=== PATIENT | female | born 1970 | race Caucasian/White ===

== ENCOUNTER → 2019-02-17 19:03 | Outpatient (CLI) | payer OTHER, SELFPAY ==
--- NOTE | 2019-02-17 | DI.MRI.S_ITS ---
PROCEDURE: MR SHOULDER LT WO CON INDICATIONS: LEFT SHOULDER PAIN TECHNIQUE: Noncontrast oblique coronal T2 fast spin echo with fat saturation, oblique sagittal T1 spin echo and T2 fast spin echo with fat saturation, axial T1 spin echo and T2 fast spin echo with fat saturation through the shoulder. COMPARISON: None. FINDINGS: Image quality: Excellent. Rotator cuff: The tendinosis and moderate to high-grade bursal surface partial-thickness tear involving anterior to mid fibers of the distal supraspinatus at their insertion on humeral head extending to the musculotendinous junction. Tendinosis involving posterior fibers of the distal supraspinatus and infraspinatus is seen. Distal subscapularis tendinosis is noted. Sagittal images demonstrate mild supraspinatus muscle atrophy. Bones and bursae: No bone marrow contusions or fractures. Moderate acromioclavicular joint osteoarthritic changes are seen. The acromion demonstrates conventional anatomy, without an os acromiale. No pathologic subacromial-subdeltoid or subcoracoid bursal fluid is present. Capsule and soft tissues: In the absence of intra-articular contrast, the labrum and glenohumeral ligaments appear intact. The long head of the biceps tendon demonstrates normal location and morphology. The rotator interval appears normal, without fibrosis. The coracohumeral ligament is normal in thickness. IMPRESSION: 1. Tendinosis and moderate grade bursal surface partial thickness tear involving distal supraspinatus at its insertion the humeral head extending to musculotendinous junction. Distal infraspinatus and subscapularis tendinosis. Mild supraspinatus muscle atrophy. 2. Moderate acromioclavicular joint osteoarthritis. No fracture or dislocation. 3. No definite focal labral tear. Dictated by: Walter Pedersen M.D. on 02/18/2019 at 11:00 Approved by: Walter Pedersen M.D. on 02/18/2019 at 11:03
--- NOTE | 2019-02-17 19:09 | DI.MRI.S_ITS ---
PROCEDURE: MR LUMBAR SPINE WO CON INDICATIONS: RADICULOPATHY,LUMBOSACRAL REGION TECHNIQUE: Noncontrast sagittal T1 spin echo and T2 fast echo, sagittal STIR, axial T1 and T2 fast spin echo through the lumbar spine. In cases with scoliosis, additional coronal T2 fast spin echo may be performed. COMPARISON: [facility], MR, L-SPINE WITHOUT CONTRAST, 11/23/2015, 12:55. FINDINGS: Image quality: Excellent. Alignment and Curvature: There is normal bony alignment. Bone Marrow: Marrow is of normal overall signal. No acute vertebral body compression fractures. Spinal Cord: Conus medullaris terminates at the L1 level. Visualized cord demonstrates normal signal and size. Paraspinous Soft Tissues: No paravertebral masses. T12-L1: No canal stenosis or foraminal stenosis. Facet joints are unremarkable. L1-L2: Unchanged. Central canal is patent. Minimal left posterior lateral disc bulge with minimal left foraminal narrowing. L2-L3: Unchanged. No canal stenosis or foraminal stenosis. L3-L4: Minimal disc bulge. No canal stenosis or foraminal stenosis. Mild facet joint hypertrophy. L4-L5: Mild increase in disc bulge, still mild. Right foraminal annulus tear plus foraminal disc bulge. Mild right foraminal narrowing. L5-S1: Posterior annulus tear. Development of right foraminal disc bulge. Mild right foraminal narrowing and minimal left foraminal narrowing. IMPRESSION: 1. There is no central canal stenosis. 2. At L4-L5, there is right foraminal annulus tear. There is mild interval increase in disc bulge. There is mild right foraminal narrowing. 3. L5-S1, there is posterior annulus tear. A right foraminal disc bulge has developed. There is mild right foraminal narrowing. Dictated by: Delfino Kang M.D. on 02/17/2019 at 20:26 Approved by: Delfino Kang M.D. on 02/17/2019 at 20:35
== END ==
PROVIDERS: Family Provider Physician Assistant; PCP Physician Assistant; Visit Provider Family Medicine
DX: M54.17 Radiculopathy, lumbosacral region (principal); M25.512 Pain in left shoulder
CPT/HCPCS: 72148; 73221

== ENCOUNTER → 2019-07-08 09:52 | Outpatient (CLI) | payer OTHER, SELFPAY ==
--- NOTE | 2019-07-08 09:56 | DI.RAD.S_ITS ---
PROCEDURE: XR CLAVICLE LT INDICATIONS: direct blow to shoulder from fall, r/o fx TECHNIQUE: 2 views of the clavicle were acquired. COMPARISON: [facility], CR, XR SHOULDER LT MIN 2V, 07/08/2019, 10:01. FINDINGS: Bones: No fractures or dislocations. No suspicious bony lesions. Soft tissues: No suspicious soft tissue calcifications. IMPRESSION: No acute left clavicle fractures. Dictated by: Niles Yung M.D. on 07/08/2019 at 9:36 Approved by: Niles Yung M.D. on 07/08/2019 at 9:37
--- NOTE | 2019-07-08 09:56 | DI.RAD.S_ITS ---
PROCEDURE: XR SHOULDER LT MIN 2V INDICATIONS: direct blow to shoulder from fall, r/o fx TECHNIQUE: 3 views of the shoulder were acquired. COMPARISON: [facility], KELLIE, XR CLAVICLE LT, 07/08/2019, 10:01. FINDINGS: Bones: No fractures or dislocations. No suspicious bony lesions. Visualized ribs appear intact. Soft tissues: No suspicious soft tissue calcifications. IMPRESSION: No acute osseous abnormality of the left shoulder. Dictated by: Niles Yung M.D. on 07/08/2019 at 9:35 Approved by: Niles Yung M.D. on 07/08/2019 at 9:36
== END ==
PROVIDERS: PCP Family Medicine; Visit Provider Physician Assistant
DX: S40.012A Contusion of left shoulder, initial encounter (principal); W19.XXXA Unspecified fall, initial encounter
CPT/HCPCS: 73000; 73030

== ENCOUNTER → 2019-07-23 17:32 | Outpatient (CLI) | payer OTHER, SELFPAY ==
--- NOTE | 2019-07-23 | DI.MRI.S_ITS ---
PROCEDURE: MR CERVICAL SPINE WO CON INDICATIONS: Radiculopathy, cervical region TECHNIQUE: Noncontrast sagittal T1 spin echo and T2 fast spin echo, sagittal STIR, foraminal oblique sagittal T2 fast spin echo, and axial gradient echo or T2 fast spin echo through the cervical spine. COMPARISON: None. FINDINGS: Image quality: Excellent. Alignment and Curvature: There is mild grade 1 retrolisthesis of C5 on C6. Bone Marrow: Marrow demonstrates normal overall signal. Minimal reactive signal within the endplates adjacent to the C4-C5 and C5-C6 intervertebral discs. Spinal Cord: Visualized spinal cord has normal size and signal. No cerebellar tonsillar herniation. Paraspinous Soft Tissues: No paravertebral masses. Prevertebral soft tissues are normal in thickness. C2-C3: Mild disc desiccation. No significant canal, nor foraminal stenosis. C3-C4: Mild disc desiccation. Mild facet hypertrophy bilaterally. No significant canal, nor foraminal stenosis. C4-C5: Mild disc desiccation and minimal diffuse disc bulge. Mild facet and uncovertebral hypertrophy bilaterally. No significant canal stenosis. Mild bilateral foraminal stenosis. C5-C6: Mild disc desiccation. Minimal diffuse disc bulge with superimposed small right paracentral protrusion. Mild facet and uncovertebral hypertrophy bilaterally. Mild canal stenosis. Mild bilateral foraminal stenosis. C6-C7: Mild disc desiccation. Mild diffuse disc bulge. Mild facet and uncovertebral hypertrophy bilaterally. Minimal canal stenosis. Mild bilateral foraminal stenosis. C7-T1: Normal appearance. IMPRESSION: Multilevel degenerative disc and facet disease, as well as uncovertebral hypertrophy, causing mild canal and foraminal stenoses. No neural impingement. Dictated by: Monique Gale M.D. on 07/24/2019 at 8:44 Approved by: Monique Gale M.D. on 07/24/2019 at 8:53
== END ==
PROVIDERS: Visit Provider Orthopaedic Surgery
DX: M50.122 Cervical disc disorder at C5-C6 level with radiculopathy (principal); M48.02 Spinal stenosis, cervical region
CPT/HCPCS: 72141

== ENCOUNTER → 2019-10-31 11:05 | Outpatient (CLI) | payer OTHER, SELFPAY ==
--- NOTE | 2019-10-31 | DI.MRI.S_ITS ---
PROCEDURE: MR LUMBAR SPINE WO CON INDICATIONS: Radiculopathy, lumbar region TECHNIQUE: Noncontrast sagittal T1 spin echo and T2 fast echo, sagittal STIR, axial T1 and T2 fast spin echo through the lumbar spine. In cases with scoliosis, additional coronal T2 fast spin echo may be performed. COMPARISON: [facility], MR, MR LUMBAR SPINE WO CON, 02/17/2019, 19:34. FINDINGS: Image quality: Excellent. Alignment and Curvature: There is normal bony alignment. Bone Marrow: Marrow is of normal overall signal. No acute vertebral body compression fractures. Spinal Cord: Conus medullaris terminates at the L1 level. Visualized cord demonstrates normal signal and size. Paraspinous Soft Tissues: No paravertebral masses. T12-L1: No canal stenosis or foraminal stenosis. L1-L2: Unchanged. Mild disc bulge, eccentric to the left. No canal stenosis. Mild left foraminal stenosis. L2-L3: Unchanged. No canal stenosis or foraminal stenosis. L3-L4: Unchanged. Minimal disc bulge. Minimal facet hypertrophy. No canal stenosis or foraminal stenosis. L4-L5: Mild disc bulge. Mild facet and ligament hypertrophy. Right foraminal annulus tear with previous right foraminal disc bulge, and now more of a disc protrusion with mild impingement on the exiting right L4 nerve root. Left foramen is patent. L5-S1: The unchanged. Posterior annulus tear this disc bulge. Right foraminal disc bulge with mild right foraminal narrowing. No significant left foraminal narrowing. IMPRESSION: 1. Interval progression at L4-L5. Again noted is a right foraminal annulus tear. There is a right foraminal disc protrusion with mild impingement on the exiting right L4 nerve root. Question: Does this patient have a right L4 radiculopathy? 2. At L5-S1, in posterior annulus tear and a right foraminal disc bulge are again noted. 3. No central canal stenosis. Dictated by: Delfino Kang M.D. on 10/31/2019 at 12:44 Approved by: Delfino Kang M.D. on 10/31/2019 at 12:56
== END ==
PROVIDERS: PCP Family Medicine; Referring Provider Family Medicine; Visit Provider Physical Medicine & Rehabilitation
DX: M51.16 Intervertebral disc disorders with radiculopathy, lumbar region (principal); M51.17 Intervertebral disc disorders with radiculopathy, lumbosacral region
CPT/HCPCS: 72148

== ENCOUNTER → 2020-01-31 13:27 | Outpatient (CLI) | payer OTHER, SELFPAY ==
[2020-02-01 16:50] LABS: COVID19 Sendout Not Detected (Not Detect)
== END ==
PROVIDERS: PCP Family Medicine; Visit Provider Physician Assistant
DX: Z11.59 Encounter for screening for other viral diseases (principal)
CPT/HCPCS: 87635

== ENCOUNTER 2020-02-03 11:39 | Day surgery (SDC) | payer OTHER, SELFPAY ==
[2020-01-30 08:43] VITALS: BMI 18.9
[2020-02-03] VITALS (8 sets, daily range): BP systolic 85–112; BP diastolic 49–66; PULSE 64–77; RESP 12–18; TEMP 36.1–37.1; O2SAT 93–99; BMI 18.9; BMI 23.2
[2020-02-03] MEDS: LACTATED RINGERS 1,000 ML 42 ML IV (12:00)
--- NOTE | 2020-02-03 13:34 | P.OP_ITS ---
Operative Date/Time/Diagnoses Date of procedure: 02/03/20 Time of procedure: 13:55 Pre-op diagnosis: Left shoulder subacromial impingement and significant AC osteoarthritis Post-op diagnosis: same Procedure & Clinicians Procedure: Left shoulder arthroscopic subacromial decompression, left shoulder AC resection arthroscopic Same procedure as scheduled: Yes Indications: This is a 49-year-old female who has severe ongoing left shoulder pain which significantly interferes with her activities and lifestyle. She has been worked up with an MRI scan and has done extensive physical therapy and has failed extensive conservative treatment including cortisone injections. She is brought to the operating room for a left shoulder arthroscopic subacromial decompression and distal clavicle resection. Surgeon: Kika Recee [employer] Supervisor: Manuel Perales Anesthesia Type: General and Peripheral nerve block Operative Notes Findings: Significant AC osteoarthritis, good quality resection, subacromial adhesions, partial thickness rotator cuff tear Closure Type: primary Specimen(s): none sent Estimated Blood Loss (mL): 100 Blood products transfused: none Procedure in detail: She was brought to the operating room. A time-out was performed. Antibiotics were given. She underwent the induction of a general anesthesia. She was carefully positioned in a lateral position with padding the down shoulder and on a beanbag. The left shoulder was prepped and draped in a standard sterile fashion. It was hip held with the well arm sanchez. Posterior portal was established. The scope was inserted into the glenohumeral joint. Arthroscopic evaluation of the glenohumeral joint showed: Normal humeral head and glenoid, normal appearing biceps and labrum, slight fraying of the rotator cuff no full-thickness tear, subacromial space [id number] adhesions in the subacromial space, subacromial spur no full-thickness rotator cuff tear on the bursal side, mild to moderate spur off of the distal clavicle with some AC joint instability. Attention was then directed to the subacromial space. She had a partial- thickness rotator cuff tear but did not have a full-thickness rotator cuff tear. A lateral portal was established. Shaver was inserted into the subacromial space. There are some moderate subacromial adhesions. They were meticulously resected with the shaver. Hemostasis was achieved with underwater cautery. There was small subacromial spur this was meticulously resected with a mechanical shaver and a bur. It was carefully checked evaluating the anterior aspect of the acromion. There was also some instability in the AC joint and a moderate spur off of the distal into the clavicle. The distal end of the clavicle was meticulously defined. An anterior portal was then established after resecting the inferior spur of the distal clavicle. A bur was then inserted into the anterior aspect of the shoulder and the distal 6 mm of clavicle was meticulously resected. Carefully checked to make sure that it had adequately been resected both anteriorly and posteriorly completely decompressing the AC joint. Final hemostasis was achieved. The wound was meticulously irrigated with normal saline portals were closed with interrupted Monocryl and Marcaine was injected. The wound was dressed sterilely. Patient was transferred recovery room in satisfactory condition. Complications none. Complications: none Post-operative Condition: stable Disposition: same day surgery Plan for aftercare: Sling for comfort for 24-48 hours okay to begin range of motion no strengthening until 4-6 weeks postoperatively.
--- NOTE | 2020-02-03 13:34 | PM.PREOP ---
Pre-operative Note COVID-19 COVID-19 status: Negative Interval Note History & Physical reviewed/Exam performed by Physician: Yes Changes to H&P: No
--- NOTE | 2020-02-03 13:56 | SUR.PREOP ---
Dr Coy at bedside to perform left shoulder intrascalene block. Pt placed on 2L NC with O2 sats 98%. Continuous monitoring initiated. VS as noted. Fentanyl and versed given by Dr Coy. Time out performed by Dr Coy. Initial injection time = 1356. Final injection time = 1359. Pt denies pain at this time.Pt tolerated procedure well.
[2020-02-03] MEDS: CLINDAMYCIN 900 MG/50 ML PIGGYBACK 50 MG IV (14:10)
--- NOTE | 2020-02-03 14:44 | SUR.OPER ---
Lateral on padded OR bed with wren bag, head on pillow, gel axillary roll in place, bottom leg bent with gel pad under knee to foot, upper leg straight and supported with pillows. Upper arm supported by pillows and secured over bottom arm to padded arm board. Safety belt at hip, tape over blanket lower legs.
[2020-02-03] MEDS: BUPIVACAINE 0.5% W/ EPI (PF) 30 ML VIAL INJ (14:59)
[2020-02-03] MEDS: SODIUM CHLORIDE IRRIG SOLUTION 3,000 ML, EPINEPHrine 1 MG IRR (15:00)
[2020-02-03] MEDS: ONDANSETRON 4 MG/2 ML INJ IV (16:04)
--- NOTE | 2020-02-03 16:55 | SUR.PHASEII ---
Pt up and ambulating gait steady, up to br and voiding without problems, taking po fluids well, denies nausea or pain. Unable to move left arm due to block but good capillary refill to fingernails. All dc instructions given to pt, now dressed and waiting for ride and she verbalizes understanding.
== END 2020-02-03 17:15 | disposition home or self-care (01) ==
PROVIDERS: PCP Family Medicine; Referring Provider Orthopaedic Surgery; Visit Provider Orthopaedic Surgery
PROC: (CPT 29805; principal; 2020-02-03 13:45)
DX: M25.812 Other specified joint disorders, left shoulder (principal); M19.012 Primary osteoarthritis, left shoulder; M75.51 Bursitis of right shoulder; D64.9 Anemia, unspecified; F41.9 Anxiety disorder, unspecified; F32.9 Major depressive disorder, single episode, unspecified
CPT/HCPCS: 29824; 29826; 64450; J0171; J2250; J2405; J3010

== ENCOUNTER → 2020-10-26 18:44 | Outpatient (CLI) | payer OTHER, SELFPAY ==
--- NOTE | 2020-10-26 18:45 | DI.MRI.S_ITS ---
PROCEDURE: MR CERVICAL SPINE WO CON INDICATIONS: CERVICALGIA TECHNIQUE: Noncontrast sagittal T1 spin echo and T2 fast spin echo, sagittal STIR, foraminal oblique sagittal T2 fast spin echo, and axial gradient echo or T2 fast spin echo through the cervical spine. COMPARISON: [facility], MR, MR CERVICAL SPINE WO CON, 07/23/2019, 18:05. [facility], CR, XR CERVICAL SPINE 2 OR 3 VIEWS, 09/29/2020, 16:51. FINDINGS: Image quality: Excellent. Alignment and Curvature: There is normal bony alignment. Bone Marrow: Marrow demonstrates normal overall signal. Spinal Cord: Visualized spinal cord has normal size and signal. No cerebellar tonsillar herniation. Paraspinous Soft Tissues: No paravertebral masses. Prevertebral soft tissues are normal in thickness. C2-C3: Normal appearance. C3-C4: Normal appearance. C4-C5: Slight loss disc signal. Minimal, diffuse disc bulge. No central stenosis. No neural foraminal narrowing. No neural compression. C5-C6: Slight loss of disc signal. Mild, diffuse disc bulge. Small right central disc protrusion. Mild narrowing of the central canal. No neural foraminal narrowing. No neural compression. C6-C7: Slight loss of disc signal. Minimal, diffuse disc bulge. No central stenosis. No neural foraminal narrowing. No neural compression. C7-T1: Normal appearance. IMPRESSION: 1. Mild multilevel degenerative disease. 2. Mild C5-C6 central canal narrowing. 3. No neural foraminal narrowing. 4. No neural compression. Dictated by: Carri Echavarria MD, PhD on 10/27/2020 at 6:52 Approved by: Carri Echavarria MD, PhD on 10/27/2020 at 12:36
== END ==
PROVIDERS: PCP Family Medicine; Referring Provider Physical Medicine & Rehabilitation; Visit Provider Physical Medicine & Rehabilitation
DX: M50.322 Other cervical disc degeneration at C5-C6 level (principal); M48.02 Spinal stenosis, cervical region
CPT/HCPCS: 72141

== ENCOUNTER 2021-02-21 11:30 | Outpatient (RCR) | payer OTHER, SELFPAY ==
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
--- NOTE | 2021-02-02 17:08 | ST.OPPOC ---
Physical, Occupational & Speech Therapy At [facility] Visit Care Team Role Provider Type Brice Rosario DO Family Provider Non-Staff Primary Care Provider Address: [address] [place], [address] Garry Neely MD Attending Provider Physician Referring Provider Address: [address] [place] [address], [place], [address] Speech Pathology Plan of Care Plan of Care Dates 01/31/21-06/02/21 Findings The SLUMs is typically used as a screening tool for cognitive functioning. Based on the results above, further testing using standardize assessment is warranted. Additionally, more information is needed. More records/information from other specialists on her care team will be requested. Short Term Goals Pt will complete a standardized cognitive function assessment. Electronically Signed by: RAYMOND Chauhan 02/02/21 [id number] Please Sign and Return: I have reviewed this Plan of Care and certify that the skilled therapy services above are required to meet the patient?s needs. Physician Signature Date Printed Name and Credentials Clinical Instructor Signature Printed Name and Credentials
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
== END 2021-04-12 11:01 ==
LOC: SP 11:30
PROVIDERS: Family Provider Family Medicine; PCP Family Medicine; Referring Provider Physical Medicine & Rehabilitation; Visit Provider Physical Medicine & Rehabilitation
DX: F07.81 Postconcussional syndrome (principal)
CPT/HCPCS: 92507; 92523

== ENCOUNTER → 2021-06-27 11:22 | Outpatient (CLI) | payer OTHER, SELFPAY ==
[2021-06-27 15:57] LABS: COVID19 -Nasal RAPID Negative (Negative)
== END ==
PROVIDERS: Family Provider Family Medicine; PCP Family Medicine; Visit Provider Physician Assistant
DX: Z01.812 Encounter for preprocedural laboratory examination (principal); Z20.822 Contact with and (suspected) exposure to COVID-19
CPT/HCPCS: 87635

== ENCOUNTER 2021-06-28 12:32 | Inpatient (IN) | payer OTHER, SELFPAY ==
[2021-06-21 08:47] VITALS: BMI 23.9
[2021-06-28] VITALS (7 sets, daily range): BP systolic 115–160; BP diastolic 71–92; PULSE 58–103; RESP 12–18; TEMP 36.2–37.1; O2SAT 88–99; BMI 21.9
--- NOTE | 2021-06-28 | DI.RAD.S_ITS ---
PROCEDURE: XR CHEST 1V INDICATIONS: CHEST TUBE FOR PNEUMOTHORAX TECHNIQUE: One view of the chest was acquired. COMPARISON: [facility], , XR CHEST 1V, 06/28/2021, 16:05. FINDINGS: Surgical changes and devices: Right-sided chest tube is been placed. Lungs and pleura: Lungs are clear. No pleural effusions. Trace apical right-sided pneumothorax. Mediastinum: Mediastinal contours appear normal. Heart size is normal. Bones and chest wall: No suspicious bony lesions. Overlying soft tissues appear unremarkable. IMPRESSION: Status post placement of right-sided chest tube with near resolution of right-sided pneumothorax. Trace persistent apical right-sided pneumothorax noted. Dictated by: Carri Echavarria MD, PhD on 06/28/2021 at 17:05 Approved by: Carri Echavarria MD, PhD on 06/28/2021 at 17:07
[2021-06-28] MEDS: LACTATED RINGERS 1,000 ML 42 ML IV ×2 (13:21→15:38)
--- NOTE | 2021-06-28 13:37 | PM.PREOP ---
Pre-operative Note COVID-19 COVID-19 status: Negative Interval Note History & Physical reviewed/Exam performed by Physician: Yes Changes to H&P: No
--- NOTE | 2021-06-28 13:38 | PM.OP.1 ---
Operative Date/Time/Diagnoses Date of procedure: 06/28/21 Time of procedure: 14:00 Pre-op diagnosis: Right shoulder impingement, distal clavicle osteoarthritis Post-op diagnosis: same Procedure & Clinicians Procedure: Right shoulder arthroscopic subacromial decompression, mini open distal clavicle excision Same procedure as scheduled: Yes Indications: This is a 51-year-old female with chronic right shoulder pain. She has a previous history of a right shoulder arthroscopic surgery done elsewhere. She notes severe right shoulder pain and did have radiographic evidence of moderate to severe right shoulder AC OA, she also has symptoms suggestive of impingement. She has some component of chronic neck pain with pain radiating into bilateral shoulders and some component of a chronic pain problem. Surgeon: Kika Reece Straightener And Aligner: Manuel Perales Anesthesia Type: General and Peripheral nerve block Operative Notes Findings: No significant glenohumeral osteoarthritis, mild multi directional instability, normal appearing biceps tendon, no evidence of a rotator cuff tear, moderate instability of the right AC joint with moderate AC osteoarthritic change, mild to moderate subacromial adhesions Closure Type: primary Specimen(s): none sent Estimated Blood Loss (mL): 100 Blood products transfused: none Procedure in detail: Patient was brought to the operating room she underwent induction of a general anesthesia. A pain block was placed in the preoperative area for postoperative pain management. Her examination under anesthesia did show some evidence of instability of her right shoulder. She was subluxable both anteriorly and posteriorly she had full range of motion with no adhesions, she had a moderately positive sulcus test. She was carefully positioned in the lateral did decubitus position with specific attention to optimize in a position of her down left shoulder. Her right upper extremity prepped draped standard sterile fashion. Skull was inserted from a posterior portal. There was no significant arthritic change in her glenohumeral joint biceps tendon was noted to be intact as was her labrum. She she had a relatively lax capsule which was noted. There is no evidence of an articular surface rotator cuff tear. There was minimal chondromalacia along the humeral head. Scope was inserted into the subacromial space. Lateral portal was established combination of the culture ablator and shaver was used to resect adhesions from the subacromial space. There was no evidence of a bursal sided rotator cuff tear. Adhesions were carefully debrided. Coracoacromial ligament was released there was slight residual band anteriorly. Mechanical shaver was used to resect adhesions and then the bur was inserted and portion of the distal clavicle undersurface was carefully resected. She had failed an arthroscopic resection on the contralateral side and the plan was for an open resection. Arthroscopic equipment was removed small incision was made over the distal and the clavicle dissection was carried out through skin subcutaneous tissues. Gelpi retractor was placed. Capsule was opened and 2 Homans were placed on either side of the distal clavicle. Oscillating saw was used to resect approximately 7 mm of distal clavicle. Good poly resection was achieved. I was easily able to place my finger tip in the AC joint inpatient place the patient through full range of motion without evidence of impingement across the AC joint. Capsule was closed with interrupted Vicryl and the wound was closed with Monocryl and nylon. Wound was dressed sterilely. The patient tolerated the procedure well transferred recovery room in satisfactory condition complications none. Okay to do range of motion for her shoulder. Complications: none Post-operative Condition: stable Disposition: Acute Care Plan for aftercare: Use sling for several weeks. Okay to do wrist hand and elbow range of motion, no heavy lifting
[2021-06-28] MEDS: fentaNYL 100 MCG/2 ML INJ 50 MCG IV ×2 (13:57→14:15)
[2021-06-28] MEDS: MIDAZOLAM 2 MG/2 ML VIAL IV ×2 (14:14→16:33)
[2021-06-28] MEDS: CLINDAMYCIN 900 MG/50 ML PIGGYBACK 50 MG IV (14:45)
--- NOTE | 2021-06-28 14:46 | SUR.PREOP ---
Addendum entered by Kenisha Vargas R.N. 06/28/21 14:54: ekg thru out procedure 52 / sinus sara with vitals every 5 minutes done. see progress note for vitals. patient remained awake and talkative thru out procedure. some tingling and numbness rt hand starting on transfer to OR-but has control of motor function rt arm. Original Note: 06/28/20-1340 preop=patient ready for nerve block, seen and reviewed patient and allergies. Anesthesia MD at bedside to preform block. iv infusing left hand,fentanyl ivp -iv infiltrated. iv removed. Dr Hill at bedside-attempted iv left arm x 3, no results. iv by MD placed to left foot at 1410. meds given per Dr Hill-repeat 50 mcgs of fentnyl & 2 mgs iv versed. patient on monitor,oxygen 2l thru out procedure process. block completed. to OR.
--- NOTE | 2021-06-28 15:16 | SUR.OPER ---
Lateral on padded OR bed with wren bag positioner, head on pillow, gel axillary roll in place, bottom leg bent with gel pad under knee to foot, upper leg straight and supported with pillows. Operative arm secured in shoulder positioning suspension device. non-operative arm secured on padded arm board. Safety belt at hip, tape over blanket securing lower legs.
[2021-06-28] MEDS: BUPIVACAINE 0.5% (PF) 30 ML, EPINEPHrine 0.15 MG INJ (15:27)
[2021-06-28] MEDS: SODIUM CHLORIDE IRRIG SOLUTION 3,000 ML, EPINEPHrine 1 MG IRR (15:33)
--- NOTE | 2021-06-28 16:05 | DI.RAD.S_ITS ---
PROCEDURE: XR CHEST 1V INDICATIONS: low Oxygen saturation, unequal breath sounds TECHNIQUE: One view of the chest was acquired. COMPARISON: None. FINDINGS: Surgical changes and devices: None. Lungs and pleura: Lungs are clear. No pleural effusions. Large right-sided pneumothorax is noted. Mediastinum: Mediastinum is shifted to the left. Mediastinal contours appear normal. Heart size is normal. Bones and chest wall: No suspicious bony lesions. Overlying soft tissues appear unremarkable. IMPRESSION: Large right shoulder pneumothorax with complete collapse of the right lung and [id number] mediastinal shift indicating pneumothorax under tension. Findings discussed with Dr. Reece and Dr. Hill on June 28, 2021 at 4:17 p.m.. Dictated by: Carri Echavarria MD, PhD on 06/28/2021 at 16:19 Approved by: Carri Echavarria MD, PhD on 06/28/2021 at 16:21
[2021-06-28] MEDS: LORazepam 2 MG/ML INJ 0.5 MG IV ×2 (16:17→16:46)
[2021-06-28] MEDS: fentaNYL 100 MCG/2 ML INJ (16:56)
--- NOTE | 2021-06-28 17:01 | PM.OP.1 ---
Operative Date/Time/Diagnoses Date of procedure: 06/28/21 Time of procedure: 17:01 Pre-op diagnosis: Right pneumothorax Post-op diagnosis: same Procedure & Clinicians Procedure: Right tube thoracostomy Same procedure as scheduled: Yes Indications: Right pneumothorax Surgeon: Franky Brunner Click Yes if Unassisted: Yes Anesthesia Type: Local Operative Notes Procedure in detail: Consent was obtained verbally due to the emergent nature of the procedure. The right chest was prepped and draped in the usual fashion. Roughly 15 mL of lidocaine were injected into the skin and subcutaneous tissue and along the 7th and 8th ribs. A 3 cm incision was made with a 10 blade scalpel. A Mercy clamp was used to dissect down to the rib and the pleural space was punctured with the Mercy clamp in a controlled manner. A lee of air was noted. Next, a 28 Georgian trocar chest tube was inserted and the trocar was retracted. Tube was inserted towards the apex and posteriorly. The tube was then connected to the water seal. There was condensation in the tube. There were air bubbles noted in the chamber on expiration. A single 3-0 Vicryl subcutaneous stitch was used to close down the incision partially. And 0 Ethibond was placed around the tube as a U-stitch and left on tied. A 3-0 nylon was used to secure the chest tube to the skin. The tube junction was secured with silk tape and 4x4s were placed around the thoracostomy site covered with Medipore tape. Chest x-ray was performed and showed resolution of the pneumothorax. Post-operative Condition: stable
--- NOTE | 2021-06-28 17:13 | SUR.PHASEI ---
Pt complaining of right side chest pain. Chest Xray obtained, radiologist reports right pnemothorax. Dr Brunner to PACU to place chest tube. Dr Hill at bedside. Chest tube placed and secured to Janay with low suction.
--- NOTE | 2021-06-28 18:08 | SUR.PHASEI ---
1610 hrs: Pt placed on 4 L O2 NC for sats below 90% 1615 hours: Pt placed on 6 L O2 simple mask for sats of 88 %.
--- NOTE | 2021-06-28 18:10 | SUR.PHASEI ---
1800 hrs: Pt transported in stable condition with chest tube patent to room 215. Bedside report to GAB Wise, all questions answered.
[2021-06-28] MEDS: LACTATED RINGERS 1,000 ML 125 ML IV (18:29)
[2021-06-28] MEDS: OXYCODONE IR 10 MG TABLET PO ×2 (18:29→21:25)
--- NOTE | 2021-06-28 19:34 | PC.NURSE ---
A&Ox4. VSS. Pain 04/03. Given 10 mg oxycodone and fentanyl 75 mg patch applied. at bedside. Patient is very anxious and in a lot of pain. Frustrated with staff and yelling. Provided reassurance and PRN pain medication for comfort. IV LR running into left foot. chest tube set up to intermittent suction. Right arm in sling. Bed low. Room air 98%. Call light within reach.
[2021-06-28] MEDS: HYDROMORPHONE 0.5 MG INJ IV (20:05)
[2021-06-28] MEDS: clonazePAM 0.5 MG TABLET 1 MG PO (20:05)
[2021-06-28] MEDS: DOCUSATE 100 MG CAPSULE PO (21:22)
[2021-06-28] MEDS: BISACODYL 5 MG TABLET 20 MG PO (21:22)
[2021-06-28] MEDS: GABAPENTIN 600 MG TABLET 1800 MG PO (21:23)
[2021-06-28] MEDS: OMEPRAZOLE 20MG CAPS 20 EACH PO (21:24)
[2021-06-28] MEDS: TOPIRAMATE 100 MG TABLET PO (21:24)
[2021-06-28] MEDS: polyethylene glycoL 3350 17 GM POWD.PACK PO (21:24)
[2021-06-28] MEDS: TIZANIDINE 4 MG TABLET 8 MG PO (21:24)
[2021-06-28] MEDS: PROMETHAZINE 25 MG TABLET 75 MG PO (21:24)
[2021-06-29] MEDS: LACTATED RINGERS 1,000 ML 125 ML IV (02:41)
[2021-06-29] MEDS: OXYCODONE IR 10 MG TABLET PO ×5 (02:42→18:35)
[2021-06-29 03:00] VITALS: BP 109/63; PULSE 74; RESP 18; TEMP 36.9; O2SAT 95
--- NOTE | 2021-06-29 05:08 | DI.RAD.S_ITS ---
PROCEDURE: XR CHEST 1V INDICATIONS: right pneumothorax TECHNIQUE: One view of the chest was acquired. COMPARISON: [facility], , XR CHEST 1V, 06/28/2021, 16:52. FINDINGS: Surgical changes and devices: Redemonstrated right chest tube. Lungs and pleura: No consolidation or pleural effusions . Trace right apical pneumothorax. Mediastinum: Mediastinal contours appear normal. Heart size is normal. Bones and chest wall: No suspicious bony lesions. Overlying soft tissues appear unremarkable. IMPRESSION: Persistent trace right apical pneumothorax. Dictated by: Ash Graham M.D. on 06/29/2021 at 9:19 Approved by: Ash Graham M.D. on 06/29/2021 at 9:21
[2021-06-29 06:53] LABS: Hematocrit 35.8 % (36-46); Hemoglobin 12.1 g/dL (12.0-16.0); Mean Corpuscular HGB Conc 33.7 % (30-36); Mean Corpuscular Hemoglobin 31.9 PG (26-34); Mean Corpuscular Volume 94.5 fL (80-100); Platelet Count 208 X10^3/uL (150-400); Red Blood Cell Count 3.79 X10^6/uL (4.0-5.2); Red Cell Distribution Width 13.1 % (11.6-14.8); White Blood Cell Count 6.5 X10^3/uL (4.5-11.0)
[2021-06-29 07:37] VITALS: BP 125/75; PULSE 89; RESP 16; TEMP 36.7; O2SAT 98
[2021-06-29] MEDS: DOCUSATE 100 MG CAPSULE PO (08:14)
[2021-06-29] MEDS: TIZANIDINE 4 MG TABLET 8 MG PO ×2 (08:14→15:38)
[2021-06-29] MEDS: clonazePAM 0.5 MG TABLET 1 MG PO ×2 (08:14→15:38)
[2021-06-29] MEDS: ESCITALOPRAM 10 MG TABLET 20 MG PO (08:14)
[2021-06-29] MEDS: TOPIRAMATE 100 MG TABLET PO (08:14)
[2021-06-29] MEDS: GABAPENTIN 600 MG TABLET PO ×2 (08:14→15:40)
[2021-06-29] MEDS: estradioL 1 MG TABLET 2 MG PO (08:21)
[2021-06-29] MEDS: PROGESTERONE, MICRONIZED 100 MG CAPSULE 200 MG PO (08:21)
[2021-06-29] MEDS: RIMEGEPANT 75 MG 1 EACH PO (08:21)
[2021-06-29] MEDS: OMEPRAZOLE 20MG CAPS 20 EACH PO (08:21)
[2021-06-29] MEDS: ZOLMITRIPTAN 5 MG 10 EACH NASAL (08:37)
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
[2021-06-29 11:51] VITALS: PULSE 79; RESP 16; O2SAT 96
[2021-06-29 12:08] VITALS: BP 131/83; PULSE 76; RESP 15; TEMP 36.1; O2SAT 98
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
--- NOTE | 2021-06-29 13:18 | DI.RAD.S_ITS ---
PROCEDURE: XR CHEST 1V INDICATIONS: PAIN TECHNIQUE: One view of the chest was acquired. COMPARISON: [facility], CR, XR CHEST 1V, 06/29/2021, 5:14. FINDINGS: Surgical changes and devices: Right-sided chest tube is projected over the right upper lobe. Lungs and pleura: There is a persistent trace right apical pneumothorax. It measures approximately 4 mm compared to 2 mm. Mediastinum: Mediastinal contours appear normal. Heart size is normal. Bones and chest wall: No suspicious bony lesions. Overlying soft tissues appear unremarkable. IMPRESSION: Persistent trace right apical pneumothorax. It is questionably minimally increased in size. However, this could be secondary to inspiratory/expiratory effort. Interval follow-up is recommended. Dictated by: Feli Landaverde M.D. on 06/29/2021 at 14:15 Approved by: Feli Landaverde M.D. on 06/29/2021 at 14:20
[2021-06-29 15:51] VITALS: BP 149/92; PULSE 71; RESP 16; TEMP 36.5; O2SAT 98
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
--- NOTE | 2021-06-29 17:00 | DI.RAD.S_ITS ---
PROCEDURE: XR CHEST 1V INDICATIONS: pneumothorax TECHNIQUE: One view of the chest was acquired. COMPARISON: [facility], , XR CHEST 1V, 06/29/2021, 13:34. FINDINGS: Surgical changes and devices: Right-sided chest tube is again seen. Lungs and pleura: Small right apically pneumothorax is again noted slightly decreased in size compared to earlier study . No left-sided pneumothorax. No focal infiltrate. No pleural effusions or pneumothorax. Mediastinum: Mediastinal contours appear normal. Heart size is normal. Bones and chest wall: No suspicious bony lesions. Overlying soft tissues appear unremarkable. IMPRESSION: Interval slight decrease in size of patient's known right apical pneumothorax. Dictated by: Walter Pedersen M.D. on 06/29/2021 at 17:08 Approved by: Walter Pedersen M.D. on 06/29/2021 at 17:09
--- NOTE | 2021-06-29 18:46 | PC.NURSE ---
Pt A&OX3, VSS, afebrile on RA. CT this a.m. to LIWS. scant output. Ortho at bedside this a.m. evaluating pt and clearing her for d/c home after Surgery removes CT.MD Monk At bedside ordering Chest xray this a.m. Pt anxious to discharge home. Fentanyl patch in place. Able to mobilize around the room independently this afternoon. Repeat Chest xray ordered this afternoon with CT clamped and pt cleared to discharge home this evening after MD removed CT. She complains of burning with voiding and frequent UTI's requesting to have UA completed. UA sent per PA order but she was also instructed to follow up with her PCP.Her and her spouse verbalize understanding of discharge instructions including site care, activity, signs and symptoms of infection, as well as medications and follow up appointments. She is escorted via w/ch to private vehicle with spouse at 1835 this evening with all of her home medications and belongings. Scripts escribed to patient's [facility].
== END 2021-06-29 18:35 | disposition home or self-care (01) | DRG 168 ==
LOC: OR 15:55 → AC 18:09
PROVIDERS: Admitting Provider Orthopaedic Surgery; Family Provider Family Medicine; PCP Family Medicine; Referring Provider Orthopaedic Surgery; Visit Provider Orthopaedic Surgery
PROC: 0PB90ZZ Excision of Right Clavicle, Open Approach (ICD-10-PCS; CPT 23120; principal; 2021-06-28 14:30)
PROC: 0PB90ZZ Excision of Right Clavicle, Open Approach (ICD-10-PCS; CPT 29805; 2021-06-28 14:30)
DX: J95.811 Postprocedural pneumothorax (principal); M19.011 Primary osteoarthritis, right shoulder; M75.41 Impingement syndrome of right shoulder; M94.211 Chondromalacia, right shoulder; F32.A Depression, unspecified; G43.909 Migraine, unspecified, not intractable, without status migrainosus; Z87.891 Personal history of nicotine dependence; Z20.822 Contact with and (suspected) exposure to COVID-19
CPT/HCPCS: 36415; 64415; 71045; 85027; 94760; 97163; 97535; J0171; J0330; J1100; J1170; J2060; J2250; J2405; J2704; J3010

== ENCOUNTER 2023-12-21 12:22 | Emergency (ER) | payer OTHER, SELFPAY ==
[2021-06-28 18:02] VITALS: BMI 21.9
[2023-12-21] VITALS (7 sets, daily range): BP systolic 86–101; BP diastolic 52–57; PULSE 54–77; RESP 20; TEMP 37.2; O2SAT 93–96; BMI 22.9
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
== END 2023-12-21 14:15 | disposition home or self-care (01) ==
PROVIDERS: Emergency Provider Emergency Medicine; Family Provider Family Medicine; PCP Family Medicine
DX: R33.9 Retention of urine, unspecified (principal)
CPT/HCPCS: 51702; 51798; 99283

== ENCOUNTER 2024-08-05 18:28 | Emergency (ER) | payer OTHER, SELFPAY ==
[2021-06-28 18:02] VITALS: BMI 21.9
[2024-08-05 18:58] VITALS: BP 161/92; PULSE 100; RESP 18; TEMP 36.4; O2SAT 100; BMI 22.5
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
[2024-08-05] MEDS: HYDROCODONE/ACET 5/325 TABLET 2 TAB PO (19:08)
[2024-08-05 23:41] VITALS: BP 158/97; PULSE 95; O2SAT 97
[2024-08-06] VITALS: BP 136/82; PULSE 94; O2SAT 97
--- NOTE | 2024-08-06 00:08 | DI.CT.S_ITS ---
PROCEDURE: CT LE LT W CON INDICATIONS: Tibial plateau fracture TECHNIQUE: Noncontrast 1-1.5 mm axial sections acquired from the mid-patella to the proximal tibia, with coronal and sagittal reformats. COMPARISON: [facility], CR, XR KNEE LT 3V, 08/05/2024, 19:09. FINDINGS: Image quality: Diagnostic Bones: There is a minimally displaced fracture through the posterior cortex of the tibia, extending to the posterior central tibial plateau and lateral tibial plateau. There is no significant depressed fragment. Background mild knee degenerative changes. No dislocation. Patellar enthesopathy. Soft tissues: Lipohemarthrosis. IMPRESSION: Tibial plateau fracture as described. Dictated by: Louie Xiong M.D. on 08/06/2024 at 1:19 Approved by: Louie Xiong M.D. on 08/06/2024 at 1:22
[2024-08-06] MEDS: HYDROCODONE/ACET 5/325 TABLET 1 TAB PO (00:16)
[2024-08-06] MEDS: BUPRENORPHINE/NALOXONE 8MG/2MG 1 TAB 0.5 TAB SL (01:33)
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
[2024-08-06 02:04] VITALS: BP 136/82; PULSE 82; RESP 18; O2SAT 99
[2024-08-06] MEDS: HYDROCODONE/ACET 5/325 PREPACK 1 BOTTLE MISC (02:15)
== END 2024-08-06 02:25 | disposition home or self-care (01) ==
PROVIDERS: Emergency Provider Emergency Medicine; Family Provider Family Medicine; PCP Family Medicine
DX: S82.142A Displaced bicondylar fracture of left tibia, initial encounter for closed fracture (principal); V00.321A Fall from snow-skis, initial encounter
CPT/HCPCS: 73562; 73590; 73700; 99283; 99284